=== PATIENT | female | born 1975 | race Caucasian/White ===

== ENCOUNTER 2017-08-13 17:37 | Emergency (ER) | payer OTHER ==
[~2017-08-13] VITALS: Ht 154.9 cm; Wt 93.4 kg
[2017-08-13] MEDS ORDERED: FOLIC ACID1 MG (18:02)
[2017-08-13] MEDS ORDERED: METHYLDOPA500 MG (18:02)
[2017-08-13] MEDS ORDERED: PRENATAL TABLE1 EAC2 (18:04)
[2017-08-13] MEDS ORDERED: ALDOMET250 MG PO (18:48)
== END 2017-08-13 19:33 | disposition home or self-care (01) ==
LOC: ER 17:37
DX: O13.1 Gestational [pregnancy-induced] hypertension without significant proteinuria, first trimester (principal); Z3A.08 8 weeks gestation of pregnancy

== ENCOUNTER 2017-08-18 23:31 | Emergency (ER) | payer OTHER ==
[~2017-08-18] VITALS: Ht 154.9 cm; Wt 93.4 kg
[~2017-08-18 23:31] MED LIST: ALDOMET250 MG PO; FOLIC ACID1 MG; METHYLDOPA500 MG; PRENATAL TABLE1 EAC2
== END 2017-08-19 08:01 | disposition home or self-care (01) ==
LOC: ER 23:31
DX: O20.8 Other hemorrhage in early pregnancy (principal); Z34.01 Encounter for supervision of normal first pregnancy, first trimester

== ENCOUNTER → 2017-08-21 | Emergency (ER) | payer OTHER ==
[~2017-08-21] VITALS: Ht 154.9 cm; Wt 93.4 kg
== END | disposition home or self-care (01) ==
LOC: ER 19:34
DX: O03.9 Complete or unspecified spontaneous abortion without complication (principal)